=== PATIENT | male | born 1960 | race Caucasian/White ===

== ENCOUNTER 2024-06-03 23:01 | Inpatient (IN) | payer OTHER ==
[2024-06-03 23:25] VITALS: BMI 30.5
[2024-06-04] MEDS ORDERED: MAG HYDROX/AL HYDROX/SIMETH 30 ML UNIT-DOSE CUP PO PRN (03:21)
[2024-06-04] MEDS ORDERED: BENZONATATE 200 MG CAPSULE PO PRN (03:21)
[2024-06-04] MEDS ORDERED: NALOXONE (NARCAN) HCL 4 MG/0.1 ML SPRAY NS PRN (03:21)
[2024-06-04] MEDS ORDERED: NICOTINE POLACRILEX 2 MG GUM BUC PRN (03:21)
[2024-06-04] MEDS ORDERED: BISMUTH SUBSALICYLATE 524 MG/30 ML PO PRN (03:21)
[2024-06-04] MEDS ORDERED: NALOXONE HCL 0.4 MG/ML VIAL IM PRN (03:21)
[2024-06-04] MEDS ORDERED: POLYETHYLENE GLYCOL (HEALTHYLAX) 3350 17 GM PACKET PO PRN (03:21)
[2024-06-04] MEDS ORDERED: guaiFENesin 600 MG TABLET.ER (FP) PO PRN (03:21)
[2024-06-04] MEDS ORDERED: IBUPROFEN 400 MG TABLET (FP) PO PRN (03:21)
[2024-06-04] MEDS ORDERED: ONDANSETRON *ODT* 4 MG TABLET SL PRN (03:21)
[2024-06-04] MEDS ORDERED: MAGNESIUM HYDROX 2400MG/30ML ORAL SUSPENSION 30 ML CUP PO PRN (03:21)
[2024-06-04] MEDS ORDERED: IBUPROFEN 600 MG TABLET (FP) PO PRN (03:21)
[2024-06-04] MEDS ORDERED: LOPERAMIDE HCL 2 MG CAPSULE PO PRN (03:21)
[2024-06-04] MEDS ORDERED: BENZOCAINE/MENTHOL (CHLORASEPTIC ) LOZENGE MM PRN (03:21)
[2024-06-04] MEDS ORDERED: chlordiazePOXIDE HCL 25 MG CAPSULE PO PRN (03:23)
[2024-06-04] MEDS: chlordiazePOXIDE HCL 25 MG CAPSULE PO SCH (04:34)
[2024-06-04] MEDS: PRENATAL VITAMINS W/ FOLIC ACID TABLET (FP) PO SCH (10:28)
[2024-06-04] MEDS: ASPIRIN COATED 81 MG TABLET.EC PO SCH (10:28)
[2024-06-04] MEDS: NICOTINE 21 MG/24 HOURS TOPICAL PATCH TD SCH (10:29)
[2024-06-04 11:30] LABS: HEMATOCRIT 44.6 % (35.4-49); HEMOGLOBIN 15.1 GM/dL (11.7-16.9); MCH 29.8 pg (25.7-33.7); MCHC 33.8 g/dl (32.0-35.9); MEAN CELL VOLUME 88.1 fl (80-96); MEAN PLT VOLUME 8.3 fl (7.5-11.1); PLATELET COUNT 179 10^3/uL (134-434); RBC 5.07 M/mm3 (4.00-5.60); RDW 14.2 % (11.9-15.9); WHITE BLOOD COUNT 7.1 K/mm3 (4.0-10.0)
[2024-06-04 11:46] LABS: POTASSIUM 3.6 mmol/L (3.5-5.1)
[2024-06-04 11:51] LABS: CALCIUM 9.2 mg/dL (8.5-10.1)
[2024-06-04 11:52] LABS: ALBUMIN 3.6 g/dl (3.4-5.0)
[2024-06-04 11:55] LABS: BILIRUBIN,TOTAL 0.7 mg/dL (0.2-1); CREATININE 0.9 mg/dL (0.55-1.3)
[2024-06-04 11:56] LABS: TOT PROT 7.2 g/dl (6.4-8.2)
[2024-06-04] MEDS: ACETAMINOPHEN 325 MG TABLET (FP) PO PRN (17:32)
[2024-06-04] MEDS: THIAMINE 100 MG TABLET PO SCH (22:00)
[2024-06-04] MEDS: ROSUVASTATIN CA 20 MG TABLET PO SCH (22:00)
[2024-06-04] MEDS: MELATONIN 5 MG TABLETS PO SCH (22:00)
[2024-06-05] MEDS: chlordiazePOXIDE HCL 25 MG CAPSULE PO SCH (05:54)
[2024-06-06] MEDS ORDERED: chlordiazePOXIDE HCL 10 MG CAPSULE PO PRN
[2024-06-06] MEDS: chlordiazePOXIDE HCL 10 MG CAPSULE PO SCH (06:13)
[2024-06-06] MEDS ORDERED: VALSARTAN 80 MG TABLET PO SCH (22:00)
[2024-06-06] MEDS: hydrOXYzine PAMOATE 25 MG CAPSULE (FP) PO PRN (22:08)
[2024-06-06] MEDS: ATORVASTATIN CA 40 MG TABLET (FP) PO SCH (22:09)
[2024-06-06] MEDS: VALSARTAN 40 MG TABLET PO SCH (22:10)
[2024-06-07] MEDS: chlordiazePOXIDE HCL 10 MG CAPSULE PO SCH (05:52)
[2024-06-07] MEDS: chlordiazePOXIDE HCL 10 MG CAPSULE PO ONE (22:37)
[2024-06-08] MEDS: chlordiazePOXIDE HCL 10 MG CAPSULE PO ONE (05:58)
[2024-06-08] MEDS: NICOTINE POLACRILEX 2 MG LOZENGE BC PRN (20:28)
[2024-06-09] MEDS: VALSARTAN 80 MG TABLET PO SCH (21:18)
[2024-06-13] MEDS: traZODone HCL 50 MG TABLET (FP) PO SCH (21:22)
[2024-06-16] MEDS: traZODone HCL 50 MG TABLET (FP) PO SCH (21:23)
[2024-06-17] MEDS: BACLOFEN 10 MG TABLET (FP) PO SCH (15:45)
[2024-06-17] MEDS: LIDOCAINE 4% PATCH TP SCH (15:45)
[2024-06-17] MEDS: NALTREXONE HCL 50 MG TABLET PO ONE (15:45)
[2024-06-17] MEDS: LIDOCAINE PATCH REMOVAL MC SCH (21:27)
[2024-06-18] MEDS: NALTREXONE HCL 50 MG TABLET PO SCH (09:52)
[2024-06-24] MEDS: LIDOCAINE 5% TOPICAL PATCH TP SCH (13:24)
[2024-06-24] MEDS: LIDOCAINE PATCH REMOVAL MC SCH (21:29)
[2024-06-26] MEDS ORDERED: ROSUVASTATIN CA 10 MG TABLET ONE (20:48)
[2024-06-30 08:58] VITALS: RESP 18
[2024-06-30] MEDS: NALTREXONE MICROSPHERES (VIVITROL) 380 MG DISP.SYRIN IM ONE (10:33)
[2024-06-30] MEDS ORDERED: guaiFENesin 600 MG TABLET.ER (FP) PO PRN (13:34)
[2024-06-30] MEDS ORDERED: IBUPROFEN 600 MG TABLET (FP) PO PRN (13:34)
[2024-06-30] MEDS ORDERED: BENZONATATE 200 MG CAPSULE PO PRN (13:34)
[2024-06-30] MEDS ORDERED: BENZOCAINE/MENTHOL (CHLORASEPTIC ) LOZENGE MM PRN (13:34)
[2024-06-30] MEDS ORDERED: IBUPROFEN 400 MG TABLET (FP) PO PRN (13:34)
[2024-07-01 06:43] VITALS: TEMP 97.5
[2024-07-01 09:26] VITALS: BP 102/67; PULSE 82
== END 2024-07-01 09:27 | disposition home or self-care (01) | DRG 895 ==
LOC: YASAS 23:01 → Y3N 06-04 03:55 → Y3W 06-08 13:07
PROVIDERS: ADMIT Allergy & Immunology; ATTEND Psychiatry & Neurology Pain Medicine
PROC: HZ42ZZZ Group Counseling for Substance Abuse Treatment, Cognitive-Behavioral (ICD-10-PCS; principal; 2024-06-04)
DX: F10.20 Alcohol dependence, uncomplicated (principal); F14.20 Cocaine dependence, uncomplicated; Z59.00 Homelessness unspecified; F12.20 Cannabis dependence, uncomplicated; F17.210 Nicotine dependence, cigarettes, uncomplicated; F10.282 Alcohol dependence with alcohol-induced sleep disorder; E78.5 Hyperlipidemia, unspecified; I25.10 Atherosclerotic heart disease of native coronary artery without angina pectoris; I10 Essential (primary) hypertension; J06.9 Acute upper respiratory infection, unspecified; K21.9 Gastro-esophageal reflux disease without esophagitis; Z95.1 Presence of aortocoronary bypass graft; Z56.0 Unemployment, unspecified
CPT/HCPCS: 0241U-QW; 36415; 80053; 80305; 80307; 85027; 86780; 87811; 93005; 93010; J0475; J2315

== ENCOUNTER 2024-10-26 11:20 | Inpatient (IN) | payer OTHER ==
[2024-10-26 11:44] VITALS: BMI 28.7
[2024-10-26] MEDS ORDERED: NALOXONE (NARCAN) HCL 4 MG/0.1 ML SPRAY NS PRN (12:06)
[2024-10-26] MEDS ORDERED: LOPERAMIDE HCL 2 MG CAPSULE PO PRN (12:06)
[2024-10-26] MEDS ORDERED: NICOTINE POLACRILEX 2 MG GUM BUC PRN (12:06)
[2024-10-26] MEDS ORDERED: MAGNESIUM HYDROX 2400MG/30ML ORAL SUSPENSION 30 ML CUP PO PRN (12:06)
[2024-10-26] MEDS ORDERED: MAG HYDROX/AL HYDROX/SIMETH 30 ML UNIT-DOSE CUP PO PRN (12:06)
[2024-10-26] MEDS ORDERED: POLYETHYLENE GLYCOL (HEALTHYLAX) 3350 17 GM PACKET PO PRN (12:06)
[2024-10-26] MEDS ORDERED: DICYCLOMINE HCL 10 MG CAPSULE PO PRN (12:06)
[2024-10-26] MEDS ORDERED: IBUPROFEN 400 MG TABLET (FP) PO PRN (12:06)
[2024-10-26] MEDS ORDERED: BISMUTH SUBSALICYLATE 524 MG/30 ML PO PRN (12:06)
[2024-10-26] MEDS: ONDANSETRON *ODT* 4 MG TABLET SL PRN (13:05)
[2024-10-26] MEDS ORDERED: METHOCARBAMOL 500 MG TABLET ONE (13:07)
[2024-10-26] MEDS ORDERED: chlordiazePOXIDE HCL 25 MG CAPSULE ONE (13:07)
[2024-10-26] MEDS: METHOCARBAMOL 500 MG TABLET PO PRN (13:10)
[2024-10-26] MEDS: chlordiazePOXIDE HCL 25 MG CAPSULE PO PRN (13:14)
[2024-10-26] MEDS ORDERED: ONDANSETRON *ODT* 4 MG TABLET ONE (13:25)
[2024-10-26] MEDS: hydrOXYzine PAMOATE 25 MG CAPSULE (FP) PO PRN (14:22)
[2024-10-26] MEDS ORDERED: hydrOXYzine PAMOATE 25 MG CAPSULE (FP) PO ONE (14:25)
[2024-10-26] MEDS: chlordiazePOXIDE HCL 25 MG CAPSULE PO SCH (17:26)
[2024-10-26] MEDS: NICOTINE POLACRILEX 2 MG LOZENGE BC PRN (17:30)
[2024-10-26] MEDS: NICOTINE 14 MG/24 HOURS TOPICAL PATCH TD ONE (17:30)
[2024-10-26] MEDS: IBUPROFEN 600 MG TABLET (FP) PO PRN (17:34)
[2024-10-26] MEDS: P-EPHED 60MG/TRIPROLIDI 2.5MG TABLET PO PRN (19:28)
[2024-10-26] MEDS: METOPROLOL TARTRATE 25 MG TABLET (FP) PO ONE (19:29)
[2024-10-26] MEDS: THIAMINE 100 MG TABLET PO SCH (22:25)
[2024-10-26] MEDS: MELATONIN 5 MG TABLETS PO SCH (22:25)
[2024-10-26] MEDS: ACETAMINOPHEN 325 MG TABLET (FP) PO PRN (22:26)
[2024-10-27] MEDS: PRENATAL VITAMINS W/ FOLIC ACID TABLET (FP) PO SCH (10:28)
[2024-10-27] MEDS: NICOTINE 14 MG/24 HOURS TOPICAL PATCH TD SCH (10:28)
[2024-10-27 11:29] LABS: HEMATOCRIT 45.7 % (35.4-49); HEMOGLOBIN 15.4 GM/dL (11.7-16.9); MCH 31.6 pg (25.7-33.7); MCHC 33.6 g/dl (32.0-35.9); MEAN PLT VOLUME 8.9 fl (7.5-11.1); PLATELET COUNT 128 10^3/uL (134-434); RBC 4.86 M/mm3 (4.00-5.60); RDW 15.5 % (11.9-15.9); WHITE BLOOD COUNT 6.1 K/mm3 (4.0-10.0)
[2024-10-27 11:30] LABS: POTASSIUM 3.5 mmol/L (3.5-5.1)
[2024-10-27 11:42] LABS: ALBUMIN 4.1 g/dl (3.4-5.0); BLOOD UREA NITROGEN 4.4 mg/dL (7-18); CALCIUM 9.1 mg/dL (8.5-10.1)
[2024-10-27 11:45] LABS: CREATININE 0.7 mg/dL (0.55-1.3)
[2024-10-27 11:46] LABS: BILIRUBIN,TOTAL 1.2 mg/dL (0.2-1)
[2024-10-27] MEDS: BENZONATATE 200 MG CAPSULE PO PRN (14:18)
[2024-10-27] MEDS: BENZOCAINE/MENTHOL (CHLORASEPTIC ) LOZENGE MM PRN (14:20)
[2024-10-27] MEDS: GABAPENTIN 300 MG CAPSULE PO SCH (21:37)
[2024-10-27] MEDS: ROSUVASTATIN CA 20 MG TABLET PO SCH (21:37)
[2024-10-27] MEDS: VALSARTAN 80 MG TABLET PO SCH (21:37)
[2024-10-28] MEDS: chlordiazePOXIDE HCL 25 MG CAPSULE PO SCH (05:15)
[2024-10-28] MEDS: guaiFENesin 600 MG TABLET.ER (FP) PO PRN (05:17)
[2024-10-28] MEDS: FUROSEMIDE 40 MG TABLET (FP) PO SCH (10:28)
[2024-10-28] MEDS: METOPROLOL TARTRATE 25 MG TABLET (FP) PO SCH (10:29)
[2024-10-28] MEDS: CLOPIDOGREL BISULFATE 75 MG TABLET (FP) PO SCH (10:29)
[2024-10-28] MEDS: ASPIRIN COATED 81 MG TABLET.EC PO SCH (10:29)
[2024-10-28 12:34] LABS: CHLORIDE 98 mmol/L (98-107); SODIUM 137 mmol/L (136-145)
[2024-10-28 12:36] LABS: POTASSIUM 2.9 mmol/L (3.5-5.1)
[2024-10-28 12:45] LABS: BLOOD UREA NITROGEN 9.3 mg/dL (7-18); GLUCOSE,RANDOM 104 mg/dL (74-106)
[2024-10-28 12:46] LABS: ALBUMIN 3.2 g/dl (3.4-5.0)
[2024-10-28 12:47] LABS: CALCIUM 9.3 mg/dL (8.5-10.1); CREATININE 0.6 mg/dL (0.55-1.3); SGOT/AST 78 U/L (15-37)
[2024-10-28 12:49] LABS: BILIRUBIN,TOTAL 1.1 mg/dL (0.2-1); TOT PROT 6.4 g/dl (6.4-8.2)
[2024-10-28 12:50] LABS: ALK PHOS 80 U/L (45-117)
[2024-10-28 12:51] LABS: ANION GAP 9 mmol/L (4-13); CO2 30 mmol/L (21-32)
[2024-10-28 12:52] LABS: SGPT/ALT 88 U/L (13-61)
[2024-10-29] MEDS ORDERED: chlordiazePOXIDE HCL 10 MG CAPSULE PO PRN
[2024-10-29] MEDS: chlordiazePOXIDE HCL 10 MG CAPSULE PO SCH (05:20)
[2024-10-29] MEDS: POTASSIUM CHLORIDE ORAL LIQUID 20 MEQ/15 ML PO ONE ×3 (09:51→13:11)
[2024-10-30] MEDS: chlordiazePOXIDE HCL 10 MG CAPSULE PO SCH (05:21)
[2024-10-30 17:05] LABS: POTASSIUM 3.6 mmol/L (3.5-5.1)
[2024-10-30 17:09] LABS: BLOOD UREA NITROGEN 10.8 mg/dL (7-18); CALCIUM 9.6 mg/dL (8.5-10.1)
[2024-10-30 17:13] LABS: CREATININE 0.8 mg/dL (0.55-1.3)
[2024-10-30 21:42] VITALS: RESP 16
[2024-10-31] MEDS: chlordiazePOXIDE HCL 10 MG CAPSULE PO ONE (05:45)
[2024-10-31] MEDS ORDERED: NALOXONE (NYS OPIOID OVERDOSE PROGRAM) 4 MG/0.1 ML SPRAY NS PRN (08:00)
[2024-10-31 08:58] VITALS: BP 142/93; PULSE 88; TEMP 97.7
== END 2024-10-31 10:14 | disposition home or self-care (01) | DRG 897 ==
LOC: YASAS 11:20 → Y3N 13:10
PROVIDERS: ADMIT Allergy & Immunology; ATTEND Allergy & Immunology
PROC: HZ2ZZZZ Detoxification Services for Substance Abuse Treatment (ICD-10-PCS; principal; 2024-10-26)
DX: F10.230 Alcohol dependence with withdrawal, uncomplicated (principal); Z59.00 Homelessness unspecified; F17.210 Nicotine dependence, cigarettes, uncomplicated; E87.6 Hypokalemia; E78.5 Hyperlipidemia, unspecified; I25.10 Atherosclerotic heart disease of native coronary artery without angina pectoris; I10 Essential (primary) hypertension; K21.9 Gastro-esophageal reflux disease without esophagitis; Z56.0 Unemployment, unspecified
CPT/HCPCS: 36415; 71046-TC-FY; 80048; 80053; 80305; 80307; 85027; 86780; 93005; 93010; Q0162

== ENCOUNTER 2025-01-31 17:36 | Inpatient (IN) | payer OTHER ==
[2025-01-31 18:40] VITALS: BMI 29.4
[2025-01-31] MEDS ORDERED: chlordiazePOXIDE HCL 25 MG CAPSULE PO PRN (19:14)
[2025-01-31] MEDS ORDERED: BENZONATATE 200 MG CAPSULE PO PRN (19:32)
[2025-01-31] MEDS ORDERED: NICOTINE POLACRILEX 2 MG GUM BUC PRN (19:32)
[2025-01-31] MEDS ORDERED: NICOTINE POLACRILEX 2 MG LOZENGE BC PRN (19:32)
[2025-01-31] MEDS ORDERED: MAG HYDROX/AL HYDROX/SIMETH 30 ML UNIT-DOSE CUP PO PRN (19:32)
[2025-01-31] MEDS ORDERED: ONDANSETRON *ODT* 4 MG TABLET SL PRN (19:32)
[2025-01-31] MEDS ORDERED: DICYCLOMINE HCL 10 MG CAPSULE PO PRN (19:32)
[2025-01-31] MEDS ORDERED: POLYETHYLENE GLYCOL (HEALTHYLAX) 3350 17 GM PACKET PO PRN (19:32)
[2025-01-31] MEDS ORDERED: MAGNESIUM HYDROX 2400MG/30ML ORAL SUSPENSION 30 ML CUP PO PRN (19:32)
[2025-01-31] MEDS ORDERED: guaiFENesin 600 MG TABLET.ER (FP) PO PRN (19:32)
[2025-01-31] MEDS ORDERED: NALOXONE (NARCAN) HCL 4 MG/0.1 ML SPRAY NS PRN (19:32)
[2025-01-31] MEDS ORDERED: propRANOLol HCL 10 MG TABLET ONE (20:43)
[2025-01-31] MEDS ORDERED: chlordiazePOXIDE HCL 25 MG CAPSULE ONE (20:43)
[2025-01-31] MEDS: propRANOLol HCL 10 MG TABLET PO ONE (20:50)
[2025-01-31] MEDS: chlordiazePOXIDE HCL 25 MG CAPSULE PO ONE (20:50)
[2025-01-31] MEDS: THIAMINE 100 MG TABLET PO SCH (22:32)
[2025-01-31] MEDS: MELATONIN 5 MG TABLETS PO SCH (22:32)
[2025-01-31] MEDS: chlordiazePOXIDE HCL 25 MG CAPSULE PO SCH (22:32)
[2025-02-01] MEDS ORDERED: METOPROLOL TARTRATE 25 MG TABLET (FP) PO SCH (10:00)
[2025-02-01] MEDS ORDERED: VALSARTAN 80 MG TABLET PO SCH (10:00)
[2025-02-01] MEDS ORDERED: FUROSEMIDE 40 MG TABLET (FP) PO SCH (10:00)
[2025-02-01 10:37] LABS: HEMATOCRIT 38.7 % (40.1-51.0); HEMOGLOBIN 12.5 g/dL (13.7-17.5); MCHC 32.3 g/dl (32.3-36.5); MEAN CELL VOLUME 86.4 fl (79.0-92.2); MEAN PLT VOLUME 10.5 fl (9.4-12.4); PLATELET COUNT 125 x10^3/uL (163-337); RDW 14.9 % (12.2-16.4)
[2025-02-01 10:39] LABS: POTASSIUM 3.5 mmol/L (3.5-5.1)
[2025-02-01] MEDS: FUROSEMIDE 40 MG TABLET (FP) PO SCH (10:39)
[2025-02-01] MEDS: CLOPIDOGREL BISULFATE 75 MG TABLET (FP) PO SCH (10:39)
[2025-02-01] MEDS: METOPROLOL TARTRATE 25 MG TABLET (FP) PO SCH (10:39)
[2025-02-01] MEDS: ASPIRIN COATED 81 MG TABLET.EC PO SCH (10:39)
[2025-02-01] MEDS: SPIRONOLACTONE 25 MG TABLET PO SCH (10:39)
[2025-02-01] MEDS: GABAPENTIN 300 MG CAPSULE PO SCH (10:40)
[2025-02-01] MEDS: EMPAGLIFLOZIN (JARDIANCE) 10 MG TABLET PO SCH (10:40)
[2025-02-01] MEDS: VALSARTAN 80 MG TABLET PO SCH (10:40)
[2025-02-01] MEDS: PRENATAL VITAMINS W/ FOLIC ACID TABLET (FP) PO SCH (10:41)
[2025-02-01 10:50] LABS: ALBUMIN 3.3 g/dl (3.4-5.0); CALCIUM 9.1 mg/dL (8.5-10.1)
[2025-02-01 10:51] LABS: BLOOD UREA NITROGEN 18.1 mg/dL (7-18)
[2025-02-01 10:54] LABS: CREATININE 0.8 mg/dL (0.55-1.3)
[2025-02-01 10:55] LABS: BILIRUBIN,TOTAL 0.8 mg/dL (0.2-1)
[2025-02-01] MEDS: LOPERAMIDE HCL 2 MG CAPSULE PO PRN (15:49)
[2025-02-01] MEDS: METHOCARBAMOL 500 MG TABLET PO PRN (17:18)
[2025-02-01] MEDS: traZODone HCL 50 MG TABLET (FP) PO SCH (22:41)
[2025-02-01] MEDS ORDERED: ROSUVASTATIN CA 10 MG TABLET ONE (22:48)
[2025-02-01] MEDS: ROSUVASTATIN CA 20 MG TABLET PO SCH (22:59)
[2025-02-02] MEDS: chlordiazePOXIDE HCL 25 MG CAPSULE PO SCH (05:52)
[2025-02-03] MEDS: chlordiazePOXIDE HCL 10 MG CAPSULE PO PRN (00:39)
[2025-02-03] MEDS: chlordiazePOXIDE HCL 10 MG CAPSULE PO SCH (05:48)
[2025-02-03] MEDS: CLOTRIMAZOLE 1% CREAM TP SCH (14:04)
[2025-02-03] MEDS: traZODone HCL 100 MG TABLET (FP) PO SCH (22:01)
[2025-02-03] MEDS: BENZOCAINE/MENTHOL (CHLORASEPTIC ) LOZENGE MM PRN (23:38)
[2025-02-04] MEDS: chlordiazePOXIDE HCL 10 MG CAPSULE PO SCH (05:45)
[2025-02-05] MEDS: ACETAMINOPHEN 325 MG TABLET (FP) PO PRN (00:40)
[2025-02-05] MEDS: chlordiazePOXIDE HCL 10 MG CAPSULE PO ONE (05:56)
[2025-02-05] MEDS ORDERED: hydrOXYzine PAMOATE 25 MG CAPSULE (FP) PO PRN (14:25)
[2025-02-05] MEDS ORDERED: NALOXONE HCL 0.4 MG/ML VIAL IVPUSH PRN (14:25)
[2025-02-05] MEDS ORDERED: BENZONATATE 200 MG CAPSULE PO PRN (14:25)
[2025-02-05] MEDS ORDERED: NALOXONE (NARCAN) HCL 4 MG/0.1 ML SPRAY NS PRN (14:25)
[2025-02-05] MEDS ORDERED: MAG HYDROX/AL HYDROX/SIMETH 30 ML UNIT-DOSE CUP PO PRN (14:25)
[2025-02-05] MEDS ORDERED: LOPERAMIDE HCL 2 MG CAPSULE PO PRN (14:25)
[2025-02-05] MEDS ORDERED: IBUPROFEN 400 MG TABLET (FP) PO PRN (14:25)
[2025-02-05] MEDS ORDERED: MAGNESIUM HYDROX 2400MG/30ML ORAL SUSPENSION 30 ML CUP PO PRN (14:25)
[2025-02-05] MEDS ORDERED: POLYETHYLENE GLYCOL (HEALTHYLAX) 3350 17 GM PACKET PO PRN (14:25)
[2025-02-05] MEDS: IBUPROFEN 600 MG TABLET (FP) PO PRN (19:58)
[2025-02-05] MEDS: METHOCARBAMOL 500 MG TABLET PO PRN (19:58)
[2025-02-05] MEDS ORDERED: ROSUVASTATIN CA 10 MG TABLET ONE (20:36)
[2025-02-05] MEDS: MELATONIN 5 MG TABLETS PO SCH (21:50)
[2025-02-05] MEDS: THIAMINE 100 MG TABLET PO SCH (21:51)
[2025-02-05] MEDS: VALSARTAN 80 MG TABLET PO SCH (21:52)
[2025-02-06] MEDS: FOLIC ACID 1 MG TABLET (FP) PO SCH (09:52)
[2025-02-06] MEDS: ASPIRIN COATED 81 MG TABLET.EC PO SCH (09:52)
[2025-02-06] MEDS: FUROSEMIDE 40 MG TABLET (FP) PO SCH (09:53)
[2025-02-06] MEDS: PRENATAL VITAMINS W/ FOLIC ACID TABLET (FP) PO SCH (09:53)
[2025-02-06] MEDS: EMPAGLIFLOZIN (JARDIANCE) 10 MG TABLET PO SCH (12:09)
[2025-02-06] MEDS: SPIRONOLACTONE 25 MG TABLET PO SCH (12:09)
[2025-02-06] MEDS: BENZOCAINE/MENTHOL (CHLORASEPTIC ) LOZENGE MM PRN (12:13)
[2025-02-06] MEDS ORDERED: ROSUVASTATIN CA 10 MG TABLET ONE (20:19)
[2025-02-07] MEDS ORDERED: ROSUVASTATIN CA 10 MG TABLET ONE (19:32)
[2025-02-07] MEDS: guaiFENesin 600 MG TABLET.ER (FP) PO PRN (19:56)
[2025-02-08] MEDS ORDERED: ROSUVASTATIN CA 10 MG TABLET ONE (20:14)
[2025-02-09] MEDS: ACETAMINOPHEN 325 MG TABLET (FP) PO PRN (08:06)
[2025-02-09] MEDS ORDERED: FUROSEMIDE 40 MG TABLET (FP) PO SCH (12:32)
[2025-02-09] MEDS ORDERED: ROSUVASTATIN CA 10 MG TABLET ONE (20:14)
[2025-02-09] MEDS: VALSARTAN 80 MG TABLET PO SCH (21:06)
[2025-02-10] MEDS: NICOTINE 14 MG/24 HOURS TOPICAL PATCH TD SCH (09:36)
[2025-02-10] MEDS: FUROSEMIDE 20 MG TABLET (FP) PO SCH (13:25)
[2025-02-10] MEDS ORDERED: ROSUVASTATIN CA 10 MG TABLET ONE (19:41)
[2025-02-11] MEDS: GABAPENTIN 300 MG CAPSULE PO SCH (14:55)
[2025-02-12] MEDS ORDERED: ROSUVASTATIN CA 10 MG TABLET ONE (20:06)
[2025-02-13] MEDS ORDERED: ROSUVASTATIN CA 10 MG TABLET ONE (20:35)
[2025-02-15] MEDS ORDERED: guaiFENesin 200 MG/10 ML 10 ML UNIT-DOSE CUPS PO PRN (12:48)
[2025-02-15] MEDS ORDERED: ROSUVASTATIN CA 10 MG TABLET ONE (20:30)
[2025-02-16] MEDS: LIDOCAINE 4% PATCH TP SCH (12:39)
[2025-02-16] MEDS ORDERED: ROSUVASTATIN CA 10 MG TABLET ONE (19:42)
[2025-02-16] MEDS: LIDOCAINE PATCH REMOVAL MC SCH (21:30)
[2025-02-17] MEDS ORDERED: ROSUVASTATIN CA 10 MG TABLET ONE (19:38)
[2025-02-18] MEDS: LIDOCAINE 4% PATCH TP SCH (10:32)
[2025-02-18] MEDS ORDERED: ROSUVASTATIN CA 10 MG TABLET ONE (20:07)
[2025-02-19] MEDS: EMPAGLIFLOZIN (JARDIANCE) 10 MG TABLET PO SCH (06:07)
[2025-02-19] MEDS ORDERED: ROSUVASTATIN CA 10 MG TABLET ONE (19:23)
[2025-02-20] MEDS ORDERED: ROSUVASTATIN CA 10 MG TABLET ONE (19:59)
[2025-02-21] MEDS ORDERED: ROSUVASTATIN CA 10 MG TABLET ONE (19:23)
[2025-02-22 06:50] VITALS: RESP 18
[2025-02-22] MEDS ORDERED: ROSUVASTATIN CA 10 MG TABLET ONE (19:45)
[2025-02-23 07:02] VITALS: TEMP 97
[2025-02-23 09:15] VITALS: BP 118/73; PULSE 78
== END 2025-02-23 10:15 | disposition home or self-care (01) | DRG 895 ==
LOC: YASAS 17:36 → Y6N 20:34 → Y5N 02-05 12:54
PROVIDERS: ADMIT Allergy & Immunology; ATTEND Psychiatry & Neurology Pain Medicine
PROC: HZ2ZZZZ Detoxification Services for Substance Abuse Treatment (ICD-10-PCS; 2025-01-31)
PROC: HZ42ZZZ Group Counseling for Substance Abuse Treatment, Cognitive-Behavioral (ICD-10-PCS; principal; 2025-02-05)
DX: F10.20 Alcohol dependence, uncomplicated (principal); Z59.00 Homelessness unspecified; F14.10 Cocaine abuse, uncomplicated; F12.10 Cannabis abuse, uncomplicated; F17.210 Nicotine dependence, cigarettes, uncomplicated; F10.282 Alcohol dependence with alcohol-induced sleep disorder; F10.280 Alcohol dependence with alcohol-induced anxiety disorder; F10.24 Alcohol dependence with alcohol-induced mood disorder; E78.5 Hyperlipidemia, unspecified; I25.10 Atherosclerotic heart disease of native coronary artery without angina pectoris; I11.0 Hypertensive heart disease with heart failure; I50.9 Heart failure, unspecified; Z95.1 Presence of aortocoronary bypass graft; Z95.5 Presence of coronary angioplasty implant and graft; I73.9 Peripheral vascular disease, unspecified; K21.9 Gastro-esophageal reflux disease without esophagitis; B35.6 Tinea cruris; R26.89 Other abnormalities of gait and mobility; S09.90XA Unspecified injury of head, initial encounter; W07.XXXA Fall from chair, initial encounter; Y92.238 Other place in hospital as the place of occurrence of the external cause; Z99.89 Dependence on other enabling machines and devices; Z56.0 Unemployment, unspecified
CPT/HCPCS: 36415; 72070-TC-FY; 80053; 80305; 80307; 85027; 86780; 87811; 93005; 93010